=== PATIENT | female | born 1990 | race African-American/Black ===

== ENCOUNTER 2019-05-09 16:43 | Emergency (ER) | payer BC ==
[~2019-05-09] VITALS: Ht 170.2 cm; Wt 88.5 kg
[~2019-05-09 16:43] MED LIST: NORCO 5-325 TA1 EACH PO; PRENATAL
[2019-05-09] MEDS ORDERED: TAMIFLU75 MG PO (19:01)
[2019-05-09] MEDS ORDERED: TESSALON PERLE100 MG PO (19:09)
[2019-05-09 19:17] VITALS: BP 124/86
== END 2019-05-09 19:10 | disposition home or self-care (01) ==
LOC: ER 16:43
DX: J11.1 Influenza due to unidentified influenza virus with other respiratory manifestations (principal); M79.10 Myalgia, unspecified site